=== PATIENT | female | born 1980 | race African-American/Black ===

== ENCOUNTER 2021-12-25 10:45 | Emergency (ER) | payer MEDICAID ==
[~2021-12-25] VITALS: Ht 162.6 cm; Wt 55.0 kg
[2021-12-25] MEDS ORDERED: MAGNESIUM/ALUMINUM HYDROXIDE/SIMETHICONE 30ML UDC PO STA (11:32)
[2021-12-25] MEDS ORDERED: ACETAMINOPHEN 325MG TABLET PO STA (11:32)
[2021-12-25] MEDS ORDERED: MAGNESIUM HYDROXIDE 400MG/5ML 30ML UDC PO ONE (11:45)
[2021-12-25 11:51] LABS: BASOPHILS % 0.8 % (0.0-2.0); EOSINOPHILS % 2.4 % (0.0-5.0); HEMATOCRIT. 41.9 % (36.0-48.0); HEMOGLOBIN. 14.5 g/dL (12.0-16.0); MEAN CORPUSCULAR HEMOGLOBIN 34.4 pg (28.0-32.0); MEAN CORPUSCULAR VOLUME 99.7 fL (81.0-99.0); MEAN PLATELET VOLUME 8.2 fl (7.4-10.4); MONOCYTES % 8.4 % (2.0-8.0); NEUTROPHILS % 59.4 % (40.0-76.0); PLATELET 215 x1000/uL (130-400); RED CELL DISTRIBUTION WIDTH 12.4 % (11.6-14.6)
[2021-12-25 12:00] LABS: CHLORIDE 110 mEq/L (98-107)
[2021-12-25 12:05] LABS: HCG SCREEN NEGATIVE
[2021-12-25] MEDS ORDERED: DOCU-155 MT (13:06)
[2021-12-25] MEDS ORDERED: FEO PR (13:06)
[2021-12-25] MEDS ORDERED: MOM MT (13:06)
[2021-12-25 13:27] VITALS: BP 102/78
== END 2021-12-25 13:38 | disposition home or self-care (01) ==
LOC: ER 11:05
DX: R10.9 Unspecified abdominal pain (principal); K92.1 Melena; Z86.19 Personal history of other infectious and parasitic diseases
CPT/HCPCS: 36415; 76705; 80053; 84703; 85025; 99284